=== PATIENT | female | born 1940 | race Caucasian/White ===

== ENCOUNTER → 2023-02-11 | Outpatient (CLI) | payer MEDICARE, OTHER ==
--- NOTE | 2023-02-11 14:44 | Diagnostic Imaging Report ---
PROCEDURE: MRI lumbar spine without contrast. TECHNIQUE: Multiplanar, multisequence MRI of the lumbar spine was performed without contrast. INDICATION: Chronic low back pain. COMPARISON: Lumbar spine radiographs performed the same date. FINDINGS: Five lumbar-type vertebral bodies are visualized with the last well-formed disc space designated L5-S1. No acute fracture or dislocation is seen in the lumbar spine. There is left convexity curvature of the lumbar spine centered at the L3 level. There is grade 1 anterolisthesis of L5 on S1. Modic type II endplate degenerative changes are present at the L2-L3 and L3-L4 levels. No suspicious focal osseous lesions. The conus terminates at the L1 level. No masses are seen associated with the conus or nerve roots of the cauda equina. No epidural collections are identified. Multilevel degenerative changes are seen in the lumbar spine with disc bulges, facet hypertrophy, and buckling of the ligamentum flavum. T12-L1: Broad-based disc bulge, facet hypertrophy, and buckling of the ligamentum flavum result in mild spinal canal narrowing and mild bilateral foraminal narrowing. L1-L2: Broad-based disc bulge, facet hypertrophy, and buckling of the ligamentum flavum result in no significant spinal canal narrowing and moderate right and no left foraminal stenosis. L2-L3: Disc desiccation, facet hypertrophy, and buckling of the ligamentum flavum result in no significant spinal canal narrowing and uygfaeba-ps-nqycsy right and mild left foraminal stenosis. L3-L4: Broad-based disc bulge, facet hypertrophy, and buckling of the ligamentum flavum result in moderate spinal canal stenosis and flitmzgb-is-ythymz right and moderate left foraminal stenosis. L4-L5: Broad-based disc bulge, facet hypertrophy, and buckling of the ligamentum flavum result in akus-qd-tygwmyhr spinal canal narrowing and moderate right and katxtmyi-gh-evsuzt left foraminal stenosis. L5-S1: Broad-based disc bulge, facet hypertrophy, and buckling of the ligamentum flavum result in mild spinal canal narrowing and irpa-bd-tvdcxmcr right and lrzndukc-hr-bsfgra left foraminal stenosis. Paravertebral soft tissues are unremarkable. IMPRESSION: 1. No acute fracture or dislocation in the lumbar spine. 2. Multilevel degenerative changes in the lumbar spine, greatest at L3-L4, L4-L5 and L5-S1. 3. Grade 1 anterolisthesis of L5 on S1. 4. Modic type II endplate degenerative changes at the L2-L3 and L3-L4 levels. Dictated by: Dictated on workstation # [id number]
--- NOTE | 2023-02-11 15:50 | Diagnostic Imaging Report ---
EXAM: LUMBOSACRAL SPINE 4 VIEWS OR > INDICATION: MRI lumbar spine of 02/11/2023. COMPARISON: Lumbar radiculopathy. FINDINGS: Vrtxeclm-ev-eupgna left apex lumbar curvature and diffuse spondylotic change. Vertebral body heights appear preserved. No fractures are identified. The visualized pelvis is intact. Surgical clips in RUQ. 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 No acute radiographic findings. Dictated by: Dictated on workstation # [id number]
== END ==
LOC: RAD 12:42
PROVIDERS: ATTEND Nurse Practitioner
DX: M47.26 Other spondylosis with radiculopathy, lumbar region (principal); M47.27 Other spondylosis with radiculopathy, lumbosacral region; M43.17 Spondylolisthesis, lumbosacral region
CPT/HCPCS: 72110; 72148